=== PATIENT | female | born 1960 | race Caucasian/White ===

== ENCOUNTER 2018-12-20 19:19 | Emergency (ER) | payer OTHER ==
[~2018-12-20] VITALS: Ht 162.6 cm; Wt 81.2 kg
[2018-12-20 19:28] VITALS: BP 139/87
--- NOTE | 2018-12-20 19:36 | NUR ---
PT AMBULATED BACK TO THE LOBBY, NHUNGS
--- NOTE | 2018-12-20 20:00 | NUR ---
PT AMBULATED TO BED #12
--- NOTE | 2018-12-20 20:10 | NUR ---
58 Y/O F PRESENTED TO ED WITH R LEG PAIN X7DAYS. 7/10 PAIN, ACHING. PAIN INCREASES WHEN PT AMBULATES. SKIN NORMAL FOR ETHNICITY. PEDAL PULSES PRESENT BILATERALLY. PT SELF MEDICATED WITH MOTRIN WITH NO RELIEF. ERMD NOTIFIED. WILL CONTINUE TO MONITOR.
[2018-12-20] MEDS ORDERED: KETOROLAC 60 MG/2 ML VIAL IM ONE (20:50)
--- NOTE | 2018-12-20 21:20 | NUR ---
DR MOTLEY AT BEDSIDE.
[2018-12-20 21:39] VITALS: BP 145/67
== END 2018-12-20 21:39 | disposition home or self-care (01) ==
LOC: MED 19:19
DX: M25.561 Pain in right knee (principal); E11.9 Type 2 diabetes mellitus without complications; Z90.49 Acquired absence of other specified parts of digestive tract
CPT/HCPCS: 96372; 99283; J1885